=== PATIENT | male | born 1995 | race Caucasian/White ===

== ENCOUNTER 2019-04-23 23:19 | Emergency (ER) | payer BC ==
[2019-04-24] MEDS ORDERED: ONDANSETRON HCL 4 MG ORAL DISINTEGRATING TAB PO ONE
[2019-04-24 01:48] VITALS: BP 132/63
== END 2019-04-24 00:01 | disposition home or self-care (01) ==
LOC: ER 23:19
DX: R11.2 Nausea with vomiting, unspecified (principal); R19.7 Diarrhea, unspecified; R10.9 Unspecified abdominal pain
CPT/HCPCS: 99283; Q0162